=== PATIENT | female | born 1995 | race Caucasian/White ===

== ENCOUNTER 2019-07-29 17:30 | Inpatient (IN) | payer OTHER, SELFPAY ==
[2019-07-29] VITALS (7 sets, daily range): BP systolic 93–118; BP diastolic 49–69; PULSE 74–85; RESP 16; TEMP 36.4–36.9; O2SAT 96–98; BMI 30.2
[2019-07-29 18:32] LABS: Absolute Lymphocyte Count 1.49 X10^3/uL (0.83-4.51); Absolute Neutrophil Count 8.3 X10^3/uL (2.0-7.7); Basophil# 0.03 X10^3/uL; Basophil% 0.3 % (0-1); Eosinophil# 0.07 X10^3/uL; Eosinophils% 0.6 % (0-5); Hematocrit 36.5 % (37-47); Hemoglobin 12.2 g/dL (12.0-15.0); Lymphocyte # 1.49 X10^3/ul (4.0); Lymphocyte % 13.8 % (19-41); Mean Corp Hgb Conc 33.4 g/dL (32-36); Mean Corpuscular Hgb 30.4 pg (27.0-32.0); Mean Platelet Vol. 11.4 fl (6.2-12.0); Monocyte# 0.82 X10^3/uL; Monocyte% 7.6 % (0-10); NRBC Flagged by Analyzer 0 % (0-5); Neutrophil # 8.27 X10^3/uL (2.7-7.7); Neutrophil % 76.9 % (47-70); Platelet Count 155 K/mm3 (150-450); RBC Distribution Width SD 46.9 fl (35.1-43.9); Red Blood Count 4.01 M/mm3 (4.2-5.4); White Blood Count 10.8 K/mm3 (4.4-11.0)
[2019-07-29] MEDS: Lactated Ringers 1,000 ML 50 ML IV (18:36)
[2019-07-29] MEDS: Oxytocin 30 units/NS 500 ml 30 UNITS/500 ML IV.SOLN IV (18:36)
[2019-07-29] MEDS: Lactated Ringers 500 ML 999 ML IV (19:27)
[2019-07-29] MEDS: fentaNYL-bupivacaine (epidural) 100 ML BAG EPIDURAL (20:40)
--- NOTE | 2019-07-29 20:56 | PCM.HP.OB ---
History Date of Admission: 07/29/19 Final KIRBY: 08/04/19 Gestational age: 39 Weeks and 1 Days History of this : This is a 24 year-old, G 1P0 at 39.1 weeks presents with spontaneous rupture membranes at home clear fluid. Patient 2 cm dilated. Patient was originally admitted and augmentation was started with Pitocin. When I came to evaluate the patient upon my vaginal exam breech presentation was appreciated. This was confirmed by bedside ultrasound. Allergies No Known Allergies Allergy (Verified 07/29/19 18:15) Home Medications: Home Medications Ferrous Sulfate 07/29/19 Vits [Prenatabs FA ] 07/29/19 Smoking Status: Never smoker Alcohol: None Number of Fetus(es): 1 History Past Pregnancies: Past Pregnancies Delivery Date Name GA/Weeks Outcome Route Weight Infant Gender Labor Length Anesthesia Delivery Location Provider FOB Review of Systems Constitutional: Denies: Anorexia Cardiovascular: Denies: Chest Pain Physical Exam General: Alert, Oriented x3 Abdomen: Soft, Gravid Neurological: Cranial nerves II-XII grossly intact Estimated gestational size: Appropriate for gestational size Presentation: Breech Cervix Dilation (cm): 4 Station: -3 Effacement (%): 85 Assessment/Plan This is a 24 year-old, G 1P0 at 39.1 weeks. Patient with spontaneous rupture membranes at home initially was for labor augmentation however upon my arrival and evaluation the fetus was noted to be in the breech presentation. Patient was counseled on a primary section- we discussed risks of surgery- pt would like to proceed. Admit to L&D Monitor FHR/TOCO OR team notified pre op abx ordered
[2019-07-29] MEDS: Sodium Citrate/Citric Acid 30 ML UDC PO (21:04)
[2019-07-29] MEDS: Cefazolin 2 GM in 0.9% Normal Saline 100 ML IV (21:12)
--- NOTE | 2019-07-29 21:57 | PCM.OPRPT ---
Delivery Classification: JJ Final KIRBY: 08/04/19 Gestational age: 39 Weeks and 1 Days security developer: Donovan Thompson Type of Anesthesia:: Epidural Implants Used: none Date of Procedure: 07/29/19 Pre-Operative Diagnosis: SROM, term gestation, breech presentation Post-Operative Diagnosis: Live female Indications for : Breech Description of Procedure: After informed consent was obtained the patient was taken the operating room. She was then placed in the supine position. She was prepped and draped in the normal sterile fashion. Epidural Anesthesia was found to be adequate. At this time a Pfannenstiel skin incision was made with a knife was carried down to the underlying layer of the fascia. The fascial incision was then extended laterally using curved Daniels scissor. attention was then turned to the superior aspect of the fascial edge was grasped with 2 straight [place] clamps tented up and the rectus muscle dissected off sharply using curved Daniels scissor. Attention was then turned to the inferior aspect where again Sandie clamps were placed in the rectus muscles were tented up and the fascia was dissected off sharply using the curved Daniels scissor. Rectus muscles were then in the midline bluntly and peritoneum was entered bluntly. Gentle opposing traction was placed. At this time the vesicouterine peritoneum was identified. Scalpel was used to make a uterine incision in a low transverse fashion. The uterus was then entered bluntly gentle opposing traction was placed to extend this incision. Infant's buttocks was delivered followed by the legs and the rest of the infant's body head was delivered atraumatically. Delayed cord clamping was performed. Mouth and nose were suctioned. Cord was clamped and cut was handed to the waiting nursery team. The Placenta was removed from the uterus. The uterus was then removed from the abdominal cavity. At the time of removal of the uterus it appeared to have a bicornuate shape however upon further inspection the cavity did not feel bicornuate. The uterus was cleared of all clots and debris using a lap. At this time the uterine incision was reapproximated using #1 Vicryl in a running locked fashion. Second imbricating layer with a #1 Vicryl was then placed. Hemostasis was appreciated. Posterior cul-de-sac was then cleared of all clots and debris. Uterus was placed back in the abdominal cavity. Gutters were cleared of all clots and debris. Uterine incision was reevaluated and noted to be of excellent hemostasis. At this time the peritoneum was grasped with Kellys reapproximated using #2 Vicryl suture in a running fashion. Muscles then reapproximated using #2 Vicryl in a interrupted mattress suture fashion. Fascia was then reapproximated using #1 Vicryl in a running fashion. Subcu layer was reapproximated with #2 0 plain gut suture in an interrupted fashion. Subcu layer was closed using 4-0 Monocryl in a subcu fashion. Dry sterile dressing was applied. Instrument lap needle count correct ?2. Anticipated normal postoperative course. Amniotic Membrane Rupture Type: Spontaneous Amniotic Fluid Description: Clear Placenta Disposition: [facility] Drain: Herr to straight drain Fluids Replaced: 2000 Cord Entanglement: None Cord Vessel Description: 3 Vessels Esitmated Blood Loss (ml): 650 (1 minute): 9 (5 minute): 9 Delayed cord clamping: Yes Antibiotic Given: Ancef 2 grams IV x1, Zithromax 500 mg/5 mL X1 Pt instructed on risks of surgery: Bleeding, Anesthesia Risks, Infection, Injury to surrounding structure(s) including bowel and bladder Complications: None - Admit VTE Documentation VTE Present on Admission: Yes VTE Mechan Device Prophylaxis: SCD's VTE Pharm Prophylaxis ordered?: No
[2019-07-29] MEDS: Oxytocin 30 units/NS 500 ml 30 UNITS/500 ML IV.SOLN 167 UNITS IV (22:32)
[2019-07-30] VITALS (23 sets, daily range): BP systolic 91–118; BP diastolic 46–77; PULSE 74–90; RESP 14–18; TEMP 36.5–36.9; O2SAT 97–100
[2019-07-30] MEDS: Lactated Ringers 1,000 ML 100 ML IV (01:29)
--- NOTE | 2019-07-30 01:30 | NURSING ---
epidural catheter removed, blue tip intact
[2019-07-30] MEDS: Ketorolac 30 MG/ML Syringe IV ×4 (03:37→21:19)
--- NOTE | 2019-07-30 06:24 | NURSING ---
Patient denies dizziness or lightheadedness.
[2019-07-30 06:48] LABS: Hematocrit 32.1 % (37-47); Hemoglobin 10.8 g/dL (12.0-15.0); Mean Corp Hgb Conc 33.6 g/dL (32-36); Mean Corpuscular Volume 92.2 fL (81-99); Mean Platelet Vol. 11.4 fl (6.2-12.0); Platelet Count 119 K/mm3 (150-450); RBC Distribution Width SD 47.4 fl (35.1-43.9); Red Blood Count 3.48 M/mm3 (4.2-5.4); White Blood Count 13.1 K/mm3 (4.4-11.0)
--- NOTE | 2019-07-30 08:57 | PCM.PN.OB ---
Subjective: Doing well per patient and nursing staff. No ambulation yet. Mcintosh in place. Pain controlled. Denies chest pain, shortness of breath or leg pain. SCDs in place. without difficulty. - Physical Exam General: Alert, Oriented x3, Cooperative HEENT: Atraumatic, Normocephalic Neck: Trachea Midline Lungs: Clear to auscultation, Normal air movement, No rhonchi, No wheeze Cardiovascular: Regular rate, Regular Rhythm, No murmurs Abdomen: Bowel Sounds Present, - - Fundus firm 1 below U. Dressing dry and intact Extremities: Edema - +1, non pitting. SCDs in place Psych/Mental Status: Normal Affect, Appropriate Vital Signs Temp Pulse Resp BP Pulse Ox 98 F 82 18 96/46 L 100 07/30/19 06:23 07/30/19 06:23 07/30/19 06:23 07/30/19 06:23 07/30/19 06:45 Oxygen Delivery Method Room Air Weight: 176 lb Body Mass Index (BMI) 30.2 Intake and Output for Last 24 Hours 07/28/19 07/29/19 07/30/19 23:59 23:59 23:59 Intake Total 1381.19 / 1381.19 495.43 / 495.43 Output Total 450 / 450 900 / 900 Balance 931.19 / 931.19 -404.57 / -404.57 Laboratory Tests Past 24 Hrs 07/29/19 07/29/19 07/30/19 18:00 18:00 06:30 WBC 10.8 13.1 H RBC 4.01 L 3.48 L Hgb 12.2 10.8 L Hct 36.5 L 32.1 L MCV 91.0 92.2 MCH 30.4 31.0 MCHC 33.4 33.6 RDW Std Deviation 46.9 H 47.4 H RDW Coeff of Alicia 14.0 14.0 Plt Count 155 119 L MPV 11.4 11.4 Immature Gran % (Auto) 0.800 Neut % (Auto) 76.9 H Lymph % (Auto) 13.8 L [place] % (Auto) 7.6 Eos % (Auto) 0.6 Baso % (Auto) 0.3 Absolute Neuts (auto) 8.3 H Absolute Lymphs (auto) 1.49 Nucleated RBC % 0 Blood Type AB POSITIVE Antibody Screen NEGATIVE Medical Necessity - Tobacco Use Smoking Status: Never smoker Assessment/Plan A:POD #1 LTCS due to breech presentation P: 1) Doing well per patient and nursing staff. 2) D/C mcintosh today 3) Up out of bed 4) Planning D/C home tomorrow.
--- NOTE | 2019-07-30 09:50 | NURSING ---
patient asymtomatic, denies dizziness or feeling lightheaded
[2019-07-30] MEDS: Prenatal Vits Tablet 1 TABLET PO (12:11)
[2019-07-30] MEDS: Ferrous Sulfate 325 MG Tablet PO (12:11)
[2019-07-30] MEDS: Acetaminophen 500 MG Tablet 1000 MG PO (14:03)
[2019-07-30] MEDS: Senna/Docusate Sodium 1 Tablet PO (17:37)
[2019-07-30] MEDS: 0.9% Saline Lock 10 ML Syringe IV (21:19)
[2019-07-31] MEDS: 0.9% Saline Lock 10 ML Syringe IV ×2 (02:49→09:41)
[2019-07-31] MEDS: Ketorolac 30 MG/ML Syringe IV ×4 (02:49→20:45)
[2019-07-31 02:53] VITALS: BP 119/79; PULSE 70; RESP 16; TEMP 36.8; O2SAT 98
[2019-07-31] MEDS: Acetaminophen 500 MG Tablet 1000 MG PO ×2 (06:47→23:55)
[2019-07-31] MEDS: Senna/Docusate Sodium 1 Tablet PO (06:47)
[2019-07-31 08:00] VITALS: BP 129/83; PULSE 83; RESP 16; TEMP 36.7; O2SAT 96
--- NOTE | 2019-07-31 13:08 | PCM.PN.OB ---
Subjective: No complaints - Physical Exam General: Alert, Oriented x3 Abdomen: Soft, Non Tender, Non-Distended - ff mid & below umb; inc - bandage c/d/i Extremities: No Calf Tenderness Vital Signs Temp Pulse Resp BP Pulse Ox 98.1 F 83 16 129/83 H 96 07/31/19 08:00 07/31/19 08:00 07/31/19 08:00 07/31/19 08:00 07/31/19 08:00 Oxygen Delivery Method Room Air Weight: 176 lb Body Mass Index (BMI) 30.2 Intake and Output for Last 24 Hours 07/29/19 07/30/19 07/31/19 23:59 23:59 23:59 Intake Total 1381.19 / 1381.19 1495.43 / 1495.43 Output Total 450 / 450 6100 / 6100 Balance 931.19 / 931.19 -4604.57 / -4604.57 Medical Necessity - Tobacco Use Smoking Status: Never smoker Assessment/Plan PPD#2 Routine care Plan for discharge tomorrow as requested by patient
[2019-07-31] MEDS: Prenatal Vits Tablet 1 TABLET PO (13:37)
[2019-07-31] MEDS: Ferrous Sulfate 325 MG Tablet PO (13:37)
[2019-07-31 14:00] VITALS: BP 112/74; PULSE 79; RESP 16; TEMP 36.8; O2SAT 98
[2019-07-31 20:35] VITALS: BP 121/77; PULSE 75; RESP 16; TEMP 36.5
[2019-08-01 01:39] VITALS: BP 124/82; PULSE 78; RESP 16; TEMP 37
--- NOTE | 2019-08-01 05:45 | NURSING ---
Bedside fasting glucose, 88
[2019-08-01] MEDS: Ibuprofen 600 MG Tablet PO (06:32)
--- NOTE | 2019-08-01 08:14 | PCM.PN.OB ---
Subjective: Patient seen at bedside, doing well. Patient reports good pain control. Lochia mild. Breast-feeding without difficulty. Urinating without difficulty. Patient ready for DC home today. - Physical Exam General: Alert, Oriented x3 Abdomen: Soft, Non-Distended, - - Fundus firm. Incision dressing dry and intact. Extremities: No Calf Tenderness Vital Signs Temp Pulse Resp BP Pulse Ox 98.6 F 78 16 124/82 H 98 08/01/19 01:39 08/01/19 01:39 08/01/19 01:39 08/01/19 01:39 07/31/19 14:00 Oxygen Delivery Method Room Air Weight: 79.832 kg Body Mass Index (BMI) 30.2 Intake and Output for Last 24 Hours 07/30/19 07/31/19 08/01/19 23:59 23:59 23:59 Intake Total 1495.43 / 1495.43 Output Total 6100 / 6100 Balance -4604.57 / -4604.57 Medical Necessity - Tobacco Use Smoking Status: Never smoker Assessment/Plan POD#3, doing well routine care pain mgmt dc home
[2019-08-01 08:21] VITALS: BP 115/82; PULSE 74; RESP 16; TEMP 36.8; O2SAT 97
--- NOTE | 2019-08-01 08:21 | DCINST_ITS ---
Discharge Diet: No Restrictions Discharge Activity: Return to Normal Activity, May Not Drive - for 2 weeks, May not drive while taking narcotic pain medications., May Shower, May Take a Tub Bath - in 7 days. May resume sexual activity in: 4-6 weeks Lifting Restrictions: 20 pounds Additional Activity Instructions:: Nothing in the vagina for 4-6 weeks. You may return to work/school in 6 weeks. Call your doctor if your incision/area has: Continuous Slow Oozing, Sudden Increased Bleeding, Increased Pain/ Swelling, Increased Redness, Foul Smelling Discharge Call your doctor if you observe: Fever of 101 or Higher, Using more than one pad per hour - for 2 hours Suture Line Care: Avoid Pulling/Pushing, Avoid Pinching/Bending Cleanse incision/area with: Keep Dressing Clean & Dry Additional Instructions: If you experience any of the following, contact your healthcare provider. * Bleeding that soaks a pad every hour for 2 hours * Fever 100.4 or higher * Unrelieved incision or abdominal pain * Swelling, redness, discharge or bleeding from your incision or episiotomy site * Your incision begins to separate * Problems urinating (including inability to urinate or burning while urinating). * Visual changes * Severe headache * Flu-like symptoms * Pain or redness in one of both of your breasts * Pain, warmth, tenderness or swelling in your legs, especially the calf area * Frequent nausea and vomiting * Symptoms of depression or anxiety If you experience any of the following, call 911 or go to the nearest Emergency Room. * Chest pain * Problems breathing * Seizure activity * Partial or complete paralysis of a body part, slurred speech, weakness or drooping of the face, or a sudden inability to walk or hold your balance Allergies/Adverse Reactions: Allergies No Known Allergies Allergy (Verified 07/29/19 18:15) Medications to take at Discharge Vits [Prenatabs FA ] 07/29/19 Ibuprofen [Motrin] 600 mg PO Q6H PRN PRN #60 tab 08/01/19 Oxycodone HCl/Acetaminophen [Percocet 5/325] 1 tab PO Q6H PRN PRN 7 Days #20 tab 08/01/19 Senna/Docusate Sodium [Senokot-S] 1 - 2 tab PO DAILY PRN #30 tab 08/01/19 SimETHICONE [Mylicon] 80 mg PO PCHS PRN #30 tab 08/01/19 The following prescriptions were given: Ibuprofen [Motrin] 600 mg PO Q6H PRN PRN #60 tab PRN Reason: Mild Pain (1-12/31) Transmission Status: Sent to [facility] SimETHICONE [Mylicon] 80 mg PO PCHS PRN #30 tab PRN Reason: Indigestion/stomach pain Transmission Status: Sent to [facility] Oxycodone HCl/Acetaminophen [Percocet 5/325] 1 tab PO Q6H PRN PRN 7 Days #20 tab PRN Reason: Pain Score 4-08/02 Prescription Printed Senna/Docusate Sodium [Senokot-S] 1 - 2 tab PO DAILY PRN #30 tab PRN Reason: Constipation Transmission Status: Sent to [facility] Follow-Up: Call to make an appointment with your doctor for an incision check in 1-2 weeks. You will also need a 6 week post- follow up appointment. Test results from this visit will be discussed in further detail at your follow- up appointment, if applicable. Please Follow Up With: Loyda Hickman MD - Call to make an appointment for an incision check in 1-2 [phone] When: You will need a post- check in 6 weeks. Primary Care Physician: Saqib Daly III, MD [Primary Care Provider] -
--- NOTE | 2019-08-01 08:22 | PCM.DC.BLA ---
Discharge Summary Date of Admission: 07/29/19 Date of Discharge: 08/01/19 Summary: Was admitted to [facility] on 07/29/2019 with spontaneous rupture membranes in early labor. Upon evaluation fetus is found to be in the breech presentation. Patient underwent a primary low transverse section without complication. Patient had a normal postoperative course. Discharged home on postoperative day #3 on 08/01/2019. - Physical Exam Vital Signs Temp Pulse Resp BP Pulse Ox 98.6 F 78 16 124/82 H 98 08/01/19 01:39 08/01/19 01:39 08/01/19 01:39 08/01/19 01:39 07/31/19 14:00 Oxygen Delivery Method Room Air Weight: 79.832 kg Body Mass Index (BMI) 30.2 Intake and Output for Last 24 Hours 07/30/19 07/31/19 08/01/19 23:59 23:59 23:59 Intake Total 1495.43 / 1495.43 Output Total 6100 / 6100 Balance -4604.57 / -4604.57
== END 2019-08-01 11:50 | disposition home or self-care (01) | DRG 788 ==
PROVIDERS: Admitting Provider Obstetrics & Gynecology; Family Provider Family Medicine; PCP Family Medicine; Visit Provider Obstetrics & Gynecology
DX: O32.1XX0 Maternal care for breech presentation, not applicable or unspecified (principal); O99.02 Anemia complicating childbirth; D64.9 Anemia, unspecified; Z3A.39 39 weeks gestation of pregnancy; Z37.0 Single live birth
CPT/HCPCS: 59050; 85025; 85027; 86850; 86900; 86901; 94762; 99218; J7120; A4216; G0378; J2405

== ENCOUNTER 2022-06-06 10:55 | Outpatient (CLI) | payer BC, SELFPAY ==
[2022-06-06 11:13] VITALS: BMI 29.6
[2022-06-06 11:30] VITALS: BP 111/71; PULSE 90
[2022-06-06 11:49] LABS: ROM Internal Control Test YES-OK TO RESULT pt. (Internal QC); ROM Patient Test Negative (Negative)
--- NOTE | 2022-06-25 12:58 | OB.TRI.HP_ITS ---
HPI - General General Date of Admission: 06/06/22 Date of Service: 06/06/22 Chief Complaint: LOF HPI Narrative ROCIO MUNOZ, is a 27 F who presents with possible LOF. [facility] Medical History (Updated 06/25/22 @ 12:[address] Mercedes Mcneill, DO) 39 weeks gestation of Anemia Anxiety Depression depression Spontaneous onset of labor Sterilization Syncope Home Medications vits,calcium no.78-iron fumarate-folic acid 29 mg-1 mg tablet (Prenatabs FA) 1 tab PO DAILY 07/29/19 [History Last Taken 06/06/22 22:00] sertraline 50 mg tablet 50 mg PO DAILY anxiety depression 05/20/22 [History Last Taken 06/07/22] acetaminophen 500 mg tablet 1,000 mg PO Q6H #0 tabs 06/09/22 [Rx Last Taken Unknown] ferrous sulfate 325 mg (65 mg iron) tablet (FeroSul) 325 mg PO DAILY@1200 #0 tabs 06/09/22 [Rx Last Taken Unknown] ibuprofen 600 mg tablet 600 mg PO Q6H #0 tabs 06/09/22 [Rx Last Taken Unknown] sennosides 8.6 mg-docusate sodium 50 mg tablet (Stool Softener-Stimulant Laxative) 1 - 2 tab PO DAILY #0 tabs 06/09/22 [Rx Last Taken Unknown] Allergy/AdvReac Type Severity Reaction Status Date / Time No Known Allergies Allergy Verified 06/06/22 11:11 Family History (Updated 05/20/22 @ 13:22 by Bushra Nuñez) Grandmother Colon cancer Father Hypertension Mixed hyperlipidemia Grandfather CVA (cerebral vascular accident) Grandmother Hypothyroidism Mother Heart valve disorder Extra heart valve Surgical History (Updated 06/14/22 @ 00:01 by Michelle Bloom) History of section Previous delivery affecting Social History (Updated 05/20/22 @ 13:22 by Bushra Nuñez) Smoking Status: Never smoker alcohol intake: never substance use type: does not use caffeine: No History Elective abortions Hx Para 1 Spontaneous abortions Hx # Term Pregnancies Ectopic pregnancies Hx # Pregnancies Multiple births # of living children NST FHR Rate Baby A Baseline: 140 Variability:: Moderate Accelerations:: 15 x 15 Decelerations:: None NST Reactive:: Yes Assessment & Plan (1) 39 weeks gestation of : (2) Vaginal discharge: PLAN: - ROM plus negative - Has scheduled C/S
== END 2022-06-06 12:10 | disposition home or self-care (01) ==
LOC: WPOUT 11:06 → WP 11:06
PROVIDERS: Obstetrics & Gynecology; PCP Family Medicine; Visit Provider Obstetrics & Gynecology
DX: O99.891 Other specified diseases and conditions complicating pregnancy (principal); N89.8 Other specified noninflammatory disorders of vagina; Z79.899 Other long term (current) drug therapy; Z3A.39 39 weeks gestation of pregnancy
CPT/HCPCS: 59025; 59050; 84112; 99218; G0378

== ENCOUNTER 2022-06-07 20:38 | Inpatient (IN) | payer BC, SELFPAY ==
[2022-06-07] VITALS (8 sets, daily range): BP systolic 104–125; BP diastolic 59–76; PULSE 75–124; RESP 16–18; TEMP 36.2–36.6; O2SAT 98–100; BMI 29.2
[2022-06-07] MEDS: Lactated Ringers 1,000 ML 999 ML IV (20:05)
[2022-06-07] MEDS: Sodium Citrate/Citric Acid 30 ML UDC PO (21:05)
[2022-06-07] MEDS: Acetaminophen 500 MG Tablet 1000 MG PO (21:05)
[2022-06-07 21:09] LABS: Absolute Lymphocyte Count 2.02 X10^3/uL (0.83-4.51); Absolute Neutrophil Count 10.3 X10^3/uL (2.0-7.7); Basophil# 0.03 X10^3/uL; Basophil% 0.2 % (0-1); Eosinophil# 0.11 X10^3/uL; Eosinophils% 0.8 % (0-5); Hematocrit 35.5 % (37-47); Hemoglobin 12.1 g/dL (12.0-15.0); Lymphocyte # 2.02 X10^3/ul (0.83-4.51); Mean Corp Hgb Conc 34.1 g/dL (32-36); Mean Corpuscular Hgb 30.3 pg (27.0-32.0); Monocyte# 0.91 X10^3/uL; Monocyte% 6.7 % (0-10); NRBC Flagged by Analyzer 0 % (0-5); Neutrophil # 10.32 X10^3/uL (2.7-7.7); Neutrophil % 76.5 % (47-70); Platelet Count 181 K/mm3 (150-450); RBC Distribution Width CV 13.2 % (11.6-14.6); RBC Distribution Width SD 42.7 fl (35.1-43.9); Red Blood Count 3.99 M/mm3 (4.2-5.4); White Blood Count 13.5 K/mm3 (4.4-11.0)
[2022-06-07] MEDS: Cefazolin 2 GM in 0.9% Normal Saline 100 ML IV (21:35)
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
--- NOTE | 2022-06-07 21:45 | FALS_PTH ---
PATIENT: ROCIO MUNOZ LOC: [facility] U#:[id number] AGE/SX: 27/F ROOM: WP006 RE06/07/[address]: Dr. Cha Roberson MD : [id number] BED: 1 DIS: 06/09/2022 SPEC #: [id number] RECD: 06/08/22 02:18 STATUS: CHRISTIANA REBryce #: [id number] JUDY: 06/07/22 21:[address]: Cha Roberson DEPT: SURGICAL PATHOLOGY RECD BY: Funmi Rodriguez ENTERED: 06/08/22 08:07 SP TYPE: FALL TUBES OTHR DR: Dr. Roshan Denny MD Tissues: A - Fallopian tube B - Fallopian tube Procedures: Surgery Specimen Level II HEADER OPERATION: Tubal ligation PRE-OP DIAGNOSIS: Tubal ligation TISSUE SUBMITTED: A. Right fallopian tube, B. Left fallopian tube MICROSCOPIC DIAGNOSIS A. Right fallopian tube, salpingectomy: Complete segment of fallopian tube with no pathologic change. B. A. Left fallopian tube, salpingectomy: Complete segment of fallopian tube with no pathologic change. AM:chelly 06/09/2022 MICROSCOPIC DESCRIPTION Slides are reviewed. GROSS DESCRIPTION A. Received in fixative is one container labeled with the patient's name and designated right fallopian tube. The specimen consists of a fallopian tube including fimbrial ends measuring 10.5 cm in length and 0.7 cm in diameter. Sections reveal unremarkable cut surfaces. Compliance Representative Dealer sections are submitted in one cassette. B. Received in fixative is one container labeled with the patient's name and designated left fallopian tube. The specimen consists of a fallopian tube. measuring 7.5 cm in length and 0.7 cm in diameter. Fimbrial ends is not identified. Sections reveal unremarkable cut surfaces. Compliance Representative Dealer sections are submitted in one cassette. TC:4 / SJ:cc 06/08/22 CPT: 93174 x2
--- NOTE | 2022-06-07 21:47 | EX.PCM.OBRPT ---
Assessment & Plan (1) 39 weeks gestation of : (2) Previous delivery affecting : (3) Spontaneous onset of labor: (4) Sterilization: Maternal Data Information Final KIRBY: 06/12/22 Gestational age: 39 2/7 Details Operative Information Date of Procedure: 06/07/22 Pre-Operative Diagnosis: labor, 39 weeks, previous c/s, sterilization request Post-Operative Diagnosis: same Classification: JJ Procedure Type: low transverse nuclear power reactor operator #1: Liat Alba Type of Anesthesia: Spinal Anesthesiologist: Erick Lopez Special Medications: duramorph Antibiotic Given: Ancef 2 grams IV x1 Drain: Herr to straight drain Estimated Blood Loss: 900 Fluids Replaced: 1400 Procedure Start Time: 22:06 Procedure Stop Time: 23:00 Time of Delivery: 22:09 Findings Description of Procedure: The patient was taken to the operating room. She was prepped and draped in the dorsal supine position with a leftward tilt. A Pfannenstiel skin incision was made approximately 2 cm above the symphysis pubis and carried through to underlying layer fascia with the scalpel. The fascia was incised incised in the midline and extended laterally with the Daniels scissors. The rectus muscles were in the midline and the peritoneum was entered bluntly. The peritoneal incision was stretched and the bladder blade was placed. The uterine incision was made in a low transverse fashion with the scalpel and extended superiorly and inferiorly with blunt dissection. The amniotic membranes were ruptured bluntly and clear amniotic fluid returned. The 's head was brought to the incision in the flexed position and delivered without difficulty. The remainder of the was delivered with gentle traction and fundal pressure in the standard fashion. The mouth and nares were bulb suctioned. The cord was clamped and cut as the was stimulated. Cord clamping was delayed. The infant was handed off to the waiting nursing staff. The placenta was delivered with fundal massage and gentle traction in the standard fashion. The uterus was exteriorized and cleared of all clots and debris. The uterine incision was closed with #1 Vicryl in a running locked fashion. A second layer of the same suture was used in an imbricating fashion. The incision was examined and was found to be hemostatic. The uterus was placed back into the peritoneal cavity and hemostasis was again confirmed. The left fallopian tube was identified and followed out to the fimbriated end. The LigaSure device was used to clamp, seal and transect the antimesenteric portion of the broad ligament under the tube to the cornual insertion of the tube. The LigaSure device was used to clamp seal and transect the tube from the cornual edge of the uterus and the pedicles were hemostatic. Attention was turned to the contralateral side and the same procedure was performed. The specimens were handed off. Was then noted that there was small amount of oozing from the left corner of the uterine incision and several [id number] sutures were needed to control bleeding from a sinus in that area. The rest of the uterine incision was examined about found to be hemostatic. Some Abdirizak was placed over the incision. The rectus muscles were examined and any bleeding was Bovie cauterized. The surgical teams outer gloves were then changed. The parietal peritoneum and rectus muscles were closed en bloc with an 0 Vicryl running suture. The rectus fascia was examined and any bleeding was Bovie cauterized and the rectus fascia was closed with 1 Vicryl suture in a running standard fashion. The subcutaneous tissue was examining and any bleeding was Bovie cauterized. The subcutaneous tissue was reapproximated with 3-0 Vicryl suture. The skin was closed in a subcuticular fashion by the RECRUITING TEAM LEAD with me present in the labor and delivery suite. I performed the remainder of the procedure with assistance. All sponge, lap, and needle counts were correct. The patient was taken to her room for recovery in a stable condition. Presentation: Positive for Vertex Amniotic Membrane Rupture Type: Artificial Amniotic Fluid Description: Clear Placental Delivery Description: Expressed Placenta Disposition: [facility] Specimen(s) Sent to Pathology: bilateral fallopian tubes Cord Vessel Description: 3 Vessels Cord Entanglement: None A Gender: Female (Tom 7lb 9 oz) (1 minute): 9 (5 minute): 9 Delayed Cord Clamping: Yes Complications Complications: none Admit VTE Documentation VTE Present on Admission: No VTE Mechan Device Prophylaxis: SCD's VTE Pharm Prophylaxis Ordered: No Reason Prophylaxis Not Ordered: Procedure Not Indicated
[2022-06-07] MEDS: Oxytocin 30 units/NS 500 ml 30 UNITS/500 ML IV.SOLN 167 UNITS IV (23:30)
[2022-06-08] VITALS (12 sets, daily range): BP systolic 98–125; BP diastolic 50–76; PULSE 62–93; RESP 15–96; TEMP 36.3–36.8; O2SAT 96–99
[2022-06-08] MEDS: Ketorolac 30 MG/ML Syringe IV ×4 (00:23→18:28)
[2022-06-08 02:21] LABS: Pathology Specimen OB SEE PATHOLOGY REPORT
[2022-06-08] MEDS: Acetaminophen 500 MG Tablet 1000 MG PO ×4 (02:56→21:53)
[2022-06-08] MEDS: Lactated Ringers 1,000 ML 100 ML IV (02:58)
[2022-06-08 06:57] LABS: Hematocrit 29.2 % (37-47); Hemoglobin 9.7 g/dL (12.0-15.0); Mean Corp Hgb Conc 33.2 g/dL (32-36); Mean Corpuscular Hgb 29.8 pg (27.0-32.0); Mean Corpuscular Volume 89.8 fL (81-99); Mean Platelet Vol. 10.7 fl (6.2-12.0); Platelet Count 136 K/mm3 (150-450); RBC Distribution Width CV 13.1 % (11.6-14.6); RBC Distribution Width SD 42.7 fl (35.1-43.9); Red Blood Count 3.25 M/mm3 (4.2-5.4); White Blood Count 14.4 K/mm3 (4.4-11.0)
--- NOTE | 2022-06-08 08:53 | PCM.PN.OB ---
Subjective Subjective Pain controlled Objective Data Objective Data Vital Signs: Vital Signs Temp Pulse Resp BP Pulse Ox O2 Del Method 98.0 F 83 16 102/58 L 98 Room Air 06/08/22 07:55 06/08/22 07:55 06/08/22 07:55 06/08/22 07:55 06/08/22 07:55 06/08/22 07:55 Oxygen Delivery Method Room Air Weight: 170 lb 9.6 oz Body Mass Index (BMI) 29.2 Intake & Output: Intake and Output for Last 24 Hours 06/06/22 06/07/22 06/08/22 23:59 23:59 23:59 Intake Total 1110 / 1110 1044 / 1044 Output Total 200 / 200 900 / 900 Balance 910 / 910 144 / 144 Lab / Micro Data Result Diagrams: 06/08/22 06:47 Labs: Laboratory Results - last 24 hr 06/07/22 20:50: WBC 13.5 H, RBC 3.99 L, Hgb 12.1, Hct 35.5 L, MCV 89.0, MCH 30.3, MCHC 34.1, RDW Std Deviation 42.7, RDW Coeff of Alicia 13.2, Plt Count 181, MPV 11.0, Immature Gran % (Auto) 0.800, Neut % (Auto) 76.5 H, Lymph % (Auto) 15.0 L, [place] % (Auto) 6.7, Eos % (Auto) 0.8, Baso % (Auto) 0.2, Absolute Neuts (auto) 10.3 H, Absolute Lymphs (auto) 2.02, Nucleated RBC % 0 06/07/22 20:50: Blood Type AB POSITIVE, Antibody Screen NEGATIVE 06/08/22 06:47: WBC 14.4 H, RBC 3.25 L, Hgb 9.7 L, Hct 29.2 L, MCV 89.8, MCH 29.8, MCHC 33.2, RDW Std Deviation 42.7, RDW Coeff of Alicia 13.1, Plt Count 136 L, MPV 10.7 Physical Exam Const alert, oriented x3 and no apparent distress HEENT normocephalic GI soft to palpation, non-tender and non-distended GI Narrative: fundus firm, mid & below umbilicus Incision - bandage c/d/i Extremity normal to inspection and no calf tenderness Assessment & Plan (1) Previous delivery affecting : COMMENT: POD#1 PLAN: Heme - HDS, start iron for mild anemia. Mild thrombocytopenia on CBC today. ID - AF, no signs infection GI - ADAT - no issues Routine PP care
[2022-06-08] MEDS: Senna/Docusate Sodium 1 Tablet PO (09:18)
[2022-06-08] MEDS: Sertraline 50 MG Tablet PO (09:18)
[2022-06-08] MEDS: Ferrous Sulfate 325 MG Tablet PO (12:19)
[2022-06-08] MEDS: 0.9% Saline Lock 10 ML Syringe IV ×2 (12:22→18:28)
--- NOTE | 2022-06-08 19:45 | CASEMGMT ---
Social Work Assessment Referral Date: 06/07/2022 Reason for Referral: Hx PPD, Anxiety, Depression Date of Assessment: 06/08/2022 SW spoke with RN. RN states no concerns. MOB: Leeanne Bello G/P: 11/24 PNC: [facility] control: MOB states the pill. FOB states that MOB got tube ties, MOB confirms this. Baby: Girl - Tom : 06/07/2023 Apgars: 9/9 Weight: 3440 G Telemarketing Agent: Micha MENDEZ states she plans to feed combination. MOB's other children: MOB states she has one other child. A daughter named Parminder who will be three in July. FOB Sabino is also Parminder's father. Housing: MOB reports appropriate housing and states no concerns. Transportation: MOB reports to have access to transportation. Supplies: MOB reports to have all needed supplies for . Supports/Childcare Helpers: MOB reports that her Sabino will be good support and able to help. MOB reports that her parents, who live 1-2 minutes from her, will be good support and able to assist. Education Level: MOB states that she graduated high school, states she had no learning difficulties. MOB states that she went to college and has a Bachelor's degree in Dental Hygiene. Employment: MOB reports to work at [employer]. MOB states she will be taking 12 weeks off Agency Involvement: MOB reports none. MOB reports no history of CPS. Maternal Mental Health Hx: MOB reports to have PPD, Anxiety, Depression. MOB reports to take Sertraline. MOB states that she has been on Sertraline for a little over a year. MOB reports to not be in counseling and no history of going to counseling. MOB states no current suicidal/homicidal thoughts/plans/ideations. MOB reports no history of Suicidal/homicidal thoughts/plans/ideations. PHQ-2 score: 0 AOD History: MOB reports no AOD history and no AOD use during . FOB: Sabino Bello - Time Together: 12 years Involved at : Yes Employment: [employer]. FOB reports to be taking 2 weeks off. Other Children: FOB Sabino is FOB of and also other child Parminder. FOB Mental Health Hx: FOB reports to also be on Sertraline and states that he takes it for Anxiety/Depression. FOB states that as soon as he started taking it, he felt better. FOB reports that he will drink two beers every three weeks. Both FOB and MOB denied any domestic violence concerns. SW spoke with and provided education on Shaken Baby, Post Depression, and Safe Sleeping. SW provided MOB with resource packet. During assessment, MOB holding baby on chest and participating in skin to skin contact. MOB appears very appropriate with . FOB sitting on the extra bed in room and also appeared appropriate. Both MOB and FOB with appropriate affect and engaged in conversation appropriately and willingly. Plan: Home Tawny Ortega COAT FINISHER, WHEEL PRESSER
--- NOTE | 2022-06-08 20:12 | CASEMGMT ---
Social Work Note SW reviewed chart and noticed that pt has a different address than her . SW in to speak with pt and Sabino. Both pt and Sabino state that their correct address is [address] [place] [address] [place] [address] and that they live there together. Tawny Ortega HOOP MAKER, FIELD MARKETING DIRECTOR
[2022-06-09] MEDS: Ibuprofen 600 MG Tablet PO ×2 (00:24→06:24)
[2022-06-09 01:50] VITALS: BP 111/68; PULSE 84; RESP 14; TEMP 36.6; O2SAT 95
[2022-06-09] MEDS: Acetaminophen 500 MG Tablet 1000 MG PO ×2 (03:58→10:18)
--- NOTE | 2022-06-09 08:28 | PCM.DC.SUM ---
Providers Date of Admission: 06/07/22 Primary Care Physician: Dr. Roshan Denny MD Reason For Visit: R C/S Diagnosis Discharge Diagnosis (1) Previous delivery affecting : Status: Acute Code(s): O34.219 - Maternal care for unspecified type scar from previous delivery (2) Sterilization: Status: Acute Code(s): Z30.2 - Encounter for sterilization (3) Care and examination of lactating mother: Status: Acute Code(s): Z39.1 - Encounter for care and examination of lactating mother Medications at Discharge Home Medications vits,calcium no.78-iron fumarate-folic acid 29 mg-1 mg tablet (Prenatabs FA) 1 tab PO DAILY 07/29/19 sertraline 50 mg tablet 50 mg PO DAILY anxiety depression 05/20/22 acetaminophen 500 mg tablet 1,000 mg PO Q6H #0 tabs 06/09/22 ferrous sulfate 325 mg (65 mg iron) tablet (FeroSul) 325 mg PO DAILY@1200 #0 tabs 06/09/22 ibuprofen 600 mg tablet 600 mg PO Q6H #0 tabs 06/09/22 sennosides 8.6 mg-docusate sodium 50 mg tablet (Stool Softener-Stimulant Laxative) 1 - 2 tab PO DAILY #0 tabs 06/09/22 Hospital Course Operations section Summary of Care Provided Hospital Course: Patient for repeat section with bilateral tubal ligation. Hospital course was uneventful Physical Exam Narrative Patient seen at bedside. Feeling good. Passing flatus. Ambulating and voiding without difficulty. Pain is controlled with PO medications. without difficulty. Desires discharge home today. Dressing is dry and intact. Const alert and no apparent distress General Appearance: cooperative and comfortable Exam Limitations: no limitations HEENT normocephalic Eyes General Eye: normal appearance of both eyes Neck full ROM General: normal visual inspection Chest Chest: symmetrical chest wall rise Resp normal respiratory effort and normal air movement Effort and Inspection: symmetric chest movement Auscultation: clear to auscultation bilaterally Cardio regular rate and regular rhythm GI normal to inspection, nondistended, normoactive bowel sounds Back/Spine normal ROM Extremity full ROM and no calf tenderness General Extremity: normal exam except as noted Skin no rashes or lesions noted Neuro CN's II-XII intact bilaterally Psych mental status grossly normal Weight / BMI Weight Weight: 170 lb 9.6 oz Body Mass Index (BMI) 29.2 ABG / Lab / Microbiology Data Result Diagrams: 06/08/22 06:47 D/C Instructions Discharge Diet: No restrictions Discharge Activity: May Shower May resume sexual activity in: 6-8 weeks Weight Bearing Status: Weight bearing as tolerated Call your doctor if you observe: Fever of 101 or Higher, Inability to urinate, Inability to have a bowel movement, Using more than 1 pad per hour, Shortness of breath, Calf discomfort and Uncontrolled pain Change Dressing in: leave in place till F/U Cleanse incision/area with: Soap & Water Please Follow Up With: Cha Roberson MD When: 1 week incision check Meaningful Use Info Meaningful Use Diagnoses (Choose all that apply): None applicable Discharge Plan Admission Admit Date/Time: 06/07/22 20:38 Primary Reason for Your Visit: Repeat C/S Attending Provider: Cha Roberson Primary Care Provider: Roshan Denny Discharge Orders/Prescriptions Prescriptions: New acetaminophen 500 mg Tablet 1,000 mg PO Q6H Qty: 0 0RF ferrous sulfate [FeroSul] 325 mg (65 mg iron) Tablet 325 mg PO DAILY@1200 Qty: 0 0RF sennosides-docusate sodium [Stool Softener-Stimulant Laxat] 8.6-50 mg Tablet 1 - 2 tab PO DAILY Qty: 0 0RF ibuprofen 600 mg Tablet 600 mg PO Q6H Qty: 0 0RF Continued sertraline 50 mg tablet 50 mg PO DAILY Prenatabs FA 1 TABLET tablet 1 tab PO DAILY Referrals / Follow Up: Roshan Denny MD [Primary Care Provider] - Disposition Disposition (needs filled in before D/C Order can be placed): Home, Self Care
[2022-06-09 08:50] VITALS: BP 114/74; PULSE 83; RESP 16; TEMP 36.8; O2SAT 96
[2022-06-09] MEDS: Senna/Docusate Sodium 1 Tablet PO (10:18)
[2022-06-09] MEDS: Sertraline 50 MG Tablet PO (10:18)
== END 2022-06-09 12:45 | disposition home or self-care (01) | DRG 785 ==
LOC: WPOUT 06-09 08:29
PROVIDERS: Admitting Provider Obstetrics & Gynecology; PCP Family Medicine; Visit Provider Obstetrics & Gynecology
DX: O34.211 Maternal care for low transverse scar from previous cesarean delivery (principal); Z30.2 Encounter for sterilization; Z37.0 Single live birth; Z79.899 Other long term (current) drug therapy
CPT/HCPCS: 59025; 59050; 85025; 85027; 86850; 86900; 86901; 88302; 99218; 99251; J7120; A4216; G0378; G0463; J2405